=== PATIENT | female | born 1955 | race American Indian/Alaskan Native ===

== ENCOUNTER 2016-11-17 12:50 | Emergency (ER) | payer OTHER ==
[2016-11-17] MEDS ORDERED: TORADOL IM ONE (17:57)
[2016-11-17] MEDS ORDERED: TYLENOL PO ONE (17:57)
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
[2016-11-17 18:47] VITALS: BP 138/89
== END 2016-11-17 18:48 | disposition home or self-care (01) ==
LOC: ED 12:50
DX: Z04.1 Encounter for examination and observation following transport accident (principal); I10 Essential (primary) hypertension; G43.909 Migraine, unspecified, not intractable, without status migrainosus; V43.52XA Car driver injured in collision with other type car in traffic accident, initial encounter; Y93.89 Activity, other specified; Y99.8 Other external cause status; Y92.89 Other specified places as the place of occurrence of the external cause
CPT/HCPCS: 96372; 99282; J1885